=== PATIENT | female | born 1995 | race African-American/Black ===

== ENCOUNTER 2017-11-14 11:12 | Emergency (ER) | payer SELFPAY ==
[~2017-11-14] VITALS: Ht 160 cm; Wt 52.0 kg
[2017-11-14 13:27] VITALS: BP 122/60
== END 2017-11-14 13:38 | disposition home or self-care (01) ==
LOC: ER 13:38
DX: S29.012A Strain of muscle and tendon of back wall of thorax, initial encounter (principal); M54.2 Cervicalgia; F12.10 Cannabis abuse, uncomplicated; Z98.890 Other specified postprocedural states; V49.88XA Car occupant (driver) (passenger) injured in other specified transport accidents, initial encounter; Y93.89 Activity, other specified; Y92.89 Other specified places as the place of occurrence of the external cause; Y99.8 Other external cause status
CPT/HCPCS: 81025; 99283